=== PATIENT | female | born 1985 | race Caucasian/White ===

== ENCOUNTER 2024-10-18 10:00 | Emergency (ER) | payer MEDICAID ==
[~2024-10-18] VITALS: Ht 157.5 cm; Wt 84.0 kg
[~2024-10-18 10:00] MED LIST: DULO-31 PO; GABA-330 PO; IBUP-1574 PO; METO50TA16 PO; MORP-11 PO; MORPHINE SULFATE PO
[2024-10-18] MEDS: normal saline 1000ML IV soln IVB ONE (11:49)
[2024-10-18 11:50] LABS: BASOPHILS % (AUTO) 0.8 % (0-1); EOSINOPHILS # (AUTO) 0.1 X10'3 (0-0.9); EOSINOPHILS % (AUTO) 2.4 % (0-6); HEMATOCRIT 42.5 % (35.0-45.0); LYMPHOCYTES # (AUTO) 1.8 X10'3 (1.1-4.8); LYMPHOCYTES % (AUTO) 30.5 % (21-51); MEAN CORPUSCULAR HEMOGLOBIN 29.1 PG (27.0-31.0); MEAN CORPUSCULAR HGB CONC 33.1 g/dL (33.0-36.5); MEAN PLATELET VOLUME 8.4 FL (7.4-10.4); MONOCYTES # (AUTO) 0.5 X10'3 (0-0.9); MONOCYTES % (AUTO) 8.7 % (2-12); NEUTROPHILS # (AUTO) 3.3 X10'3 (1.8-7.7); NEUTROPHILS % (AUTO) 57.6 % (42-75); PLATELET COUNT 302 X10'3 (140-440); RED BLOOD COUNT 4.83 X10'6 (4.20-5.60); RED CELL DISTRIBUTION WIDTH 14.3 % (11.5-14.5); WHITE BLOOD COUNT 5.8 X10'3 (4.5-11.0)
[2024-10-18 11:54] LABS: URINE HCG NEGATIVE (NEG)
[2024-10-18 11:57] LABS: BILIRUBIN,URINE NEGATIVE (Neg); COLOR,URINE YELLOW (Yellow); GLUCOSE, URINE NEGATIVE (Neg); KETONES,URINE TRACE mg/dl (Neg); LEUKOCYTE ESTERASE ,URINE TRACE (Neg); NITRITES, URINE NEGATIVE (Neg); OCCULT BLOOD,URINE MODERATE (Neg); PROTEIN,URINE NEGATIVE (Neg); UROBILINOGEN,URINE 0.2 E.U/dL (0.2-1.0)
[2024-10-18 12:03] LABS: CLARITY,URINE SLIGHTLY CLOUDY (Clear); UA COLLECTION TYPE NON-SPECIFIED
[2024-10-18 12:04] LABS: ALANINE AMINOTRANSFERASE 36 U/L (12-78); ALBUMIN 3.6 G/DL (3.4-5.0); ALBUMIN/GLOBULIN RATIO 0.8 (1.1-1.5); ALKALINE PHOSPHATASE 107 IU/L (46-116); ANION GAP 8 (8-16); ASPARTATE AMINO TRANSFERASE 25 U/L (10-37); BILIRUBIN,TOTAL 0.3 MG/DL (0.1-1.0); BLOOD UREA NITROGEN 11 MG/DL (7-18); BUN/CREATININE RATIO 14.7 (10.0-20.0); CALCIUM 9.1 MG/DL (8.5-10.1); CHLORIDE 105 MMOL/L (99-107); CREATININE 0.75 MG/DL (0.40-0.90); GLUCOSE 96 MG/DL (70-104); LIPASE 27 U/L (16-77); SODIUM 140 MMOL/L (135-145); TOTAL CARBON DIOXIDE 27.4 MMOL/L (24-32); TOTAL PROTEIN 7.9 G/DL (6.4-8.2); eCRCL 81 ML/MIN; eGFR 87 ML/MIN
[2024-10-18 12:05] LABS: BACTERIA,URINE FEW /HPF (Neg); RENAL CELLS, URINE FEW /HPF; SQUAMOUS EPITHELIAL CELL,UR FEW /LPF (FEW); TRANSITIONAL EPI CELLS,URINE FEW /HPF; WBC,URINE 20-30 /HPF (0-4)
[2024-10-18] MEDS: ketorolac trometh 15mg/ml vial 15 MG/ML ML IV ONE (12:31)
[2024-10-18] MEDS ORDERED: LEVO-65 PO (12:56)
[2024-10-18] MEDS: lactulose 20gm/30ml cup PO ONE (13:07)
[2024-10-18] MEDS: levoFLOXACIN 250mg tablet PO ONE (13:07)
[2024-10-18 13:15] VITALS: BP 114/63; PULSE 14; RESP 16; TEMP 98.2; O2SAT 99
== END 2024-10-18 13:16 | disposition home or self-care (01) ==
LOC: ER 10:01
DX: N39.0 Urinary tract infection, site not specified (principal); K59.00 Constipation, unspecified; E86.0 Dehydration; R10.13 Epigastric pain; Z88.1 Allergy status to other antibiotic agents; Z88.2 Allergy status to sulfonamides; Z90.49 Acquired absence of other specified parts of digestive tract; Z86.79 Personal history of other diseases of the circulatory system
CPT/HCPCS: 36415; 80053; 81001; 81025; 83690; 85025; 87088; 96361; 96374; 99283; J1885; J7030